=== PATIENT | female | born 1980 | race Caucasian/White ===

== ENCOUNTER 2024-07-23 07:20 | Day surgery (SDC) | payer BC, MEDICAID ==
[2024-07-20 10:59] LABS: BASOPHILS # (AUTO) 0.1 X10'3 (0-0.2); BASOPHILS % (AUTO) 1.2 % (0-1); EOSINOPHILS # (AUTO) 0.2 X10'3 (0-0.9); EOSINOPHILS % (AUTO) 3.2 % (0-6); LYMPHOCYTES # (AUTO) 2.1 X10'3 (1.1-4.8); LYMPHOCYTES % (AUTO) 29.5 % (21-51); MEAN CORPUSCULAR HEMOGLOBIN 29.4 PG (27.0-31.0); MEAN CORPUSCULAR HGB CONC 33.3 g/dL (33.0-36.5); MEAN CORPUSCULAR VOLUME 88.3 FL (78-98); MEAN PLATELET VOLUME 8.5 FL (7.4-10.4); MONOCYTES # (AUTO) 0.7 X10'3 (0-0.9); MONOCYTES % (AUTO) 10.2 % (2-12); NEUTROPHILS % (AUTO) 55.9 % (42-75); PRE OP HEMATOCRIT 40.1 % (35.0-45.0); PRE OP HEMOGLOBIN 13.4 g/dL (12.0-16.0); PRE OP PLATELET COUNT 306 X10'3 (140-440); PRE OP WHITE BLOOD COUNT 7.1 10'3 (4.8-10.8); RED BLOOD COUNT 4.55 X10'6 (4.20-5.60); RED CELL DISTRIBUTION WIDTH 14.7 % (11.5-14.5)
[2024-07-20 11:24] LABS: ALBUMIN 3.3 G/DL (3.4-5.0); ALBUMIN/GLOBULIN RATIO 0.9 (1.1-1.5); ALKALINE PHOSPHATASE 63 IU/L (46-116); BLOOD UREA NITROGEN 18 MG/DL (7-18); BUN/CREATININE RATIO 20.9 (10.0-20.0); CALCIUM 9.1 MG/DL (8.5-10.1); CHLORIDE 106 MMOL/L (99-107); CREATININE 0.86 MG/DL (0.40-0.90); PRE OP ALT 28 U/L (30-65); PRE OP ANION GAP 6 (8-16); PRE OP AST 13 U/L (10-37); PRE OP BILIRUB, TOTAL 0.3 MG/DL (0.0-1.0); PRE OP GLUCOSE 79 MG/DL (70-104); PRE OP POTASSIUM 4.1 MMOL/L (3.4-5.1); PRE OP SODIUM 140 MMOL/L (135-145); TOTAL CARBON DIOXIDE 27.6 MMOL/L (24-32); TOTAL PROTEIN 7.1 G/DL (6.4-8.2); eGFR 72 ML/MIN
[~2024-07-23] VITALS: Ht 157.5 cm; Wt 102.9 kg
[2024-07-23] VITALS (8 sets, daily range): BP systolic 125–149; BP diastolic 87–93; PULSE 75–91; RESP 16–20; TEMP 97.2; O2SAT 96–100
[~2024-07-23 07:20] MED LIST: ALBU8HFA INH; CLIN-216 PO; Flonase; HYDR25TA4 PO; LISI20TA28 PO; PSEU-259 PO; SUMA50TA17 PO
[2024-07-23] MEDS ORDERED: cefazolin 2gm/D5W 100mL 100 ML IV ONE (08:15)
[2024-07-23] MEDS ORDERED: CLINDAMYCIN 600mg IN NS 50ML 50 ML IV ONE (08:20)
[2024-07-23] MEDS: famotidine 20mg tablet PO ONE (08:42)
[2024-07-23] MEDS: ringers solution, lacted 1,000 ML IV SCH (08:42)
[2024-07-23] MEDS ORDERED: clindamycin 600mg/D5W 50ml 50 ML IV ONE (08:45)
[2024-07-23] MEDS ORDERED: LIDOcaine 1% 30ml preserv. free vial ONE (08:46)
[2024-07-23] MEDS ORDERED: MIDAZolam 1 MG/ML 5ML VIAL ONE (09:20)
[2024-07-23] MEDS ORDERED: fentaNYL/PF 50MCG/1 ML 2ML syringe ONE (09:20)
[2024-07-23] MEDS ORDERED: ketorolac trometh 30MG/ML vial 30 MG/ML VIAL ONE (09:31)
[2024-07-23] MEDS ORDERED: BUPIVAcaine/PF 2.5mg/ml (0.25%) 10ml vial ONE (09:31)
[2024-07-23] MEDS: BUPIVAcaine 2.5mg/ml inj 50ml vial (contains preservative) SQ ONE (09:56)
== END 2024-07-23 10:49 | disposition home or self-care (01) ==
LOC: PAS 07:20
PROVIDERS: ATTEND Orthopaedic Surgery Hand Surgery
DX: M77.12 Lateral epicondylitis, left elbow (principal); I10 Essential (primary) hypertension; G43.909 Migraine, unspecified, not intractable, without status migrainosus; J45.909 Unspecified asthma, uncomplicated; G47.33 Obstructive sleep apnea (adult) (pediatric); M19.90 Unspecified osteoarthritis, unspecified site; Z87.442 Personal history of urinary calculi; Z87.891 Personal history of nicotine dependence; Z79.2 Long term (current) use of antibiotics; Z79.899 Other long term (current) drug therapy; Z90.49 Acquired absence of other specified parts of digestive tract; Z98.890 Other specified postprocedural states; Z88.0 Allergy status to penicillin; Z88.2 Allergy status to sulfonamides; Z88.5 Allergy status to narcotic agent; Z88.8 Allergy status to other drugs, medicaments and biological substances
CPT/HCPCS: 24358; 36415; 80053; 82948; 85025; 93005; J1885; J2250; J3010; J3490; J7030; J7120; Z7506; Z7512; A4215; A4618; A6446; A6449; A7000